=== PATIENT | male | born 1930 | race African-American/Black ===

== ENCOUNTER 2017-02-16 19:47 | Emergency (ER) | payer MEDICARE ==
[~2017-02-16] VITALS: Ht 180.3 cm; Wt 92.5 kg
[2017-02-16] MEDS ORDERED: IBUPROFEN 600 MG TABLET. PO ONE (21:00)
[2017-02-16] MEDS ORDERED: HYDROcodone/APAP 5/325MG 1 TAB TABLET PO ONE (21:00)
--- NOTE | 2017-02-16 22:09 | RAD ---
CT HEAD AND CERVICAL SPINE WO dated 02/16/2017 8:44 PM History: Fall, abrasion to the cheek and forehead Technique: Noncontrast CT imaging was performed of the head and cervical spine. Multiplanar reconstruction images are submitted. Exposure: One or more of the following individualized dose reduction techniques were utilized for this examination: 1. Automated exposure control 2. Adjustment of the mA and/or kV according to patient size 3. Use of iterative reconstruction technique. Head CT Comparison: September 14, 2008 Findings: No acute extra-axial or parenchymal hemorrhage is identified. There is no significant intra-axial mass effect, midline shift, or extra-axial fluid collection. The pak-white differentiation of the major vascular territories is preserved. The ventricles, sulci, and cisterns are within normal limits in size and configuration. The mastoid air cells and the visualized paranasal sinuses are aerated. There is no significant focal calvarial abnormality. There is right frontal scalp hematoma. There is mild ill-defined low-density of the supratentorial white matter, probably due to chronic microvascular ischemic disease. Impression: 1. No acute intracranial abnormality is identified. Cervical spine CT Comparison: None Findings: There is some motion degradation. No acute cervical spine fracture is identified. Vertebral body stature and AP alignment are within normal limits. Atlanto-axial distance is within normal limits. There is appropriate alignment of lateral masses of C1 relative to C2. Occipital condylar-C1 relationship is maintained. There is multilevel degenerative disc disease greatest at C2-3, C5-C6, C6-7. There is mild spondylosis. There is likely mild spinal stenosis at C6-7 and C2-3. There is multilevel facet and uncovertebral degenerative change. There is more significant narrowing of the right C4-5 and bilateral C5-C6 neural foramina. There is atherosclerotic calcification of carotid arteries in the neck bilaterally. Impression: 1. No acute cervical spine fracture is identified. 2. There is multilevel degenerative disc disease and mild spondylosis, likely mild spinal stenosis C2-3 and C6-7. 3. There is multilevel facet and uncovertebral degenerative change, neural foramina compromise greatest on the right at C4-5 and bilaterally at C5-6 Electronically signed by: Kiko Burnett MD (02/16/2017 10:06 PM) [facility]
[2017-02-16 22:45] VITALS: BP 151/80
[2017-02-16] MEDS ORDERED: HYDR-971 PO (22:50)
--- NOTE | 2017-02-16 22:51 | PHYS DOC ---
Past Medical History Past Medical History: Cancer, CVA, High Cholesterol, Hypertension, TIA, Other Additional Past Medical Histor: " weak bones" gout Past Surgical History: Other Additional Past Surgical Histo: cataract, prostate, inguinal hernia repair Alcohol Use: None Drug Use: None Adult General Chief Complaint Chief Complaint: MECHANICAL FALL HPI HPI Patient is a 86 year old gentleman who presents to the ER today secondary to recent fall. Patient reports he fell down and tripped. Patient denies any dizziness syncope or presyncope. Patient has a nausea vomiting or diarrhea. Patient has any chest pain shortness of breath. Patient denies any neck pain. Patient reports pain over his right eye, left hand and left knee. Patient reports feeling history of hypertension, no diabetes liver longer kidney problems. Patient reports she's had a stroke in the past and he is currently on Plavix. Review of systems: Constitutional: Denies fever or chills Eyes: Denies change in visual acuity, redness, or eye pain HENT: Denies nasal congestion or sore throat All other review systems are negative except as documented in the history of present illness portion. Physical exam: Constitutional: Well developed, well nourished, no acute distress, non-toxic appearance. HENT: Normocephalic, atraumatic, bilateral external ears normal, nose normal. Patient with soft tissue swelling to his supraorbital area on the right side. Patient's pupils are equally round and reactive to light. His doctor motions are intact. Patient has no disconjugate gaze. Patient has no crepitance. Patient 's nasal spine is nontender. Patient has no point bony tenderness to C-spine T- spine or L-spine. Patient's TMs were clear without any hemotympanum. Eyes: EOMI, conjunctiva normal, no discharge. Neck: Normal range of motion, no tenderness, supple, no stridor. Cardiovascular:Heart rate regular rhythm Lungs & Thorax: Bilateral breath sounds clear to auscultation no respiratory distress Abdomen: Bowel sounds normal, soft, no tenderness, no masses, no pulsatile masses. Skin: Warm, dry, no erythema, no rash. Back: No tenderness, no CVA tenderness. Extremities: No tenderness, no cyanosis, no clubbing, ROM intact, no edema. Complaining of pain to his left hand. Complaining of pain to left knee. Left hand without any point bony tenderness mild soft tissue swelling. Left knee with mild tenderness to palpation to the patella. Superficial abrasion. No joint effusion. Knee is non-ballotable. No ligamentous laxity. Neurologic: Alert and oriented X 3, normal motor function, normal sensory function, no focal deficits noted. Psychologic: Affect normal, judgement normal, mood normal. CT head and C-spine revealed no acute pathology. I discussed with the patient the abdominal findings on the CT including the significant amount of arthritis that he has. Patient was advised to follow-up with his primary care physician for further management of this finding. Patient's CT scan of his head revealed no acute pathology. There is no bleed or contusion noted. Assessment and plan 86-year-old gentleman who presents here today secondary to a fall. Patient has any loss of consciousness. Patient reports he tripped. Does not appear that he had any dizziness syncope or presyncope. His workup in ER has been unremarkable. Patient's CT scan of his head and C- spine did not show any acute pathology. Patient had an x-ray of his hand and his knee which were tender per the patient's report. Both x-rays were unremarkable for any acute pathology. Patient be given adequate analgesia in the ED and feels much better. Patient be discharged home with a prescription for [place]. Current Medications Current Medications Current Medications Medications (Trade) Dose Ordered Sig/Georgina Start Time Stop Time Status Last Admin Dose Admin Acetaminophen/ Hydrocodone Bitart (Lortab 5/325) 1 tab 1X ONCE 02/16/17 21:00 02/16/17 21:01 DC 02/16/17 21:10 1 TAB Ibuprofen (Motrin) 600 mg 1X ONCE 02/16/17 21:00 02/16/17 21:01 DC 02/16/17 21:10 600 MG Allergies Allergies Allergies Coded Allergies Type Severity Reaction Last Updated Verified No Known Drug Allergies 10/05/13 No Current Patient Data Vital Signs Vital Signs Date Time Temp Pulse Resp B/P (MAP) Pulse Ox O2 Delivery O2 Flow Rate FiO2 02/16/17 21:10 20 02/16/17 20:45 70 170/93 (118) 96 Room Air 02/16/17 20:05 98.0 98.0 EKG EKG [] Radiology/Procedures Radiology/Procedures [] Course & Med Decision Making Course & Med Decision Making Pertinent Labs and Imaging studies reviewed. (See chart for details) [] Dragon Disclaimer Dragon Disclaimer This electronic medical record was generated, in whole or in part, using a voice recognition dictation system. Departure Departure Impression: Primary Impression: Facial contusion Additional Impressions: Knee contusion Hand sprain Multiple abrasions Disposition: HOME, SELF-CARE Condition: IMPROVED Referrals: CRISSY KELLOGG Jr, MD (PCP) Patient Instructions: Head Injury, Adult, Hematoma Additional Instructions: Thank you for allowing us to participate in your care today. Followup with your primary care physician in 3 days if your symptoms do not improve. Call your Primary Doctor tomorrow and inform them of your visit today. If you do not have a primary care provider you can ask for a list of our primary care providers. Return to the emergency department you have any new or concerning findings. This should be evaluated by the primary care physician and any necessary consulting services for continued management within a few days after discharge. Return to emergency room if you have any new or concerning symptoms including but not limited to fever, chills, nausea, vomiting, intractable pain, any new rashes, chest pain, shortness of air, uncontrolled bleeding, difficulty breathing, and/or vision loss. You may have been prescribed medication that can change in your level of thinking and ability to operate machinery. These medications include hydrocodone and Ativan. Also, Benadryl has been known to do this as well. Be sure to check with your pharmacist and ask if the medications you've prescribed can affect your level of consciousness. I recommend not operating heavy machinery or driving while on medication such as these. Scripts Hydrocodone/Apap 5-325 (NORCO 5-325 TABLET) 1 Each Tablet 1 TAB PO QID Y for PAIN, #10 TAB Prov: TYRESE MALLORY MD 02/16/17 Problem Qualifiers Primary Impression: Facial contusion Encounter type: initial encounter Qualified Codes: S00.83XA - Contusion of other part of head, initial encounter Additional Impressions: Knee contusion Encounter type: initial encounter Laterality: left Qualified Codes: S80.02XA - Contusion of left knee, initial encounter Hand sprain Encounter type: initial encounter Laterality: left Qualified Codes: S63.92XA - Sprain of unspecified part of left wrist and hand, initial encounter TYRESE MALLORY MD Feb 16, 2017 22:50
--- NOTE | 2017-02-17 07:26 | EKG ---
[facility] [address] [place] [address] Test Date: 2017-02-16 Test Time: 20:15:41 Pat Name: NELI HONG Department: Room: Gender: M [employer]: : 1930 Requested By: TYRESE MALLORY Order Number: [id number] Reading MD: Jennifer Page Measurements Intervals [place] Rate: 65 P: 35 IN: 242 QRS: -84 QRSD: 124 T: 57 QT: 456 QTc: 475 Interpretive Statements SINUS RHYTHM PROLONGED IN INTERVAL ABNORMAL LEFT AXIS DEVIATION Electronically Signed On 02-18-2017 19:50:41 CDT by Jennifer Page
--- NOTE | 2017-02-17 08:20 | RAD ---
Indication: Trauma, fall on to left side. Technique: 3 views of the left knee are submitted for review. No comparison is available. Findings: There is no fracture or dislocation. There is soft tissue swelling medially. There is mild narrowing of medial compartment. There is minimal spurring in the patellofemoral compartment and medial compartment. There is no joint effusion, there may be minimal prepatellar soft tissue swelling. Impression: Negative for fracture. Mild degenerative changes
--- NOTE | 2017-02-17 08:21 | RAD ---
Indication: Pain after fall onto left side. Technique: 3 views of the left hand are submitted for review. No comparison is available. Findings: There is no fracture or dislocation. There is no soft tissue swelling. There are degenerative changes most notable at the first carpometacarpal joint. Impression: Negative for fracture.
== END 2017-02-16 23:07 | disposition home or self-care (01) ==
LOC: ER 19:47
DX: S63.92XA Sprain of unspecified part of left wrist and hand, initial encounter (principal); S80.02XA Contusion of left knee, initial encounter; S00.83XA Contusion of other part of head, initial encounter; T14.8 Other injury of unspecified body region; E78.00 Pure hypercholesterolemia, unspecified; I10 Essential (primary) hypertension; M10.9 Gout, unspecified; Z86.73 Personal history of transient ischemic attack (TIA), and cerebral infarction without residual deficits; Z98.49 Cataract extraction status, unspecified eye; Z79.01 Long term (current) use of anticoagulants; W01.0XXA Fall on same level from slipping, tripping and stumbling without subsequent striking against object, initial encounter; Y93.89 Activity, other specified; Y92.89 Other specified places as the place of occurrence of the external cause; Y99.8 Other external cause status
CPT/HCPCS: 70450; 72125; 73130; 73562; 93005; 99284-25